=== PATIENT | male | born 1960 | race Caucasian/White ===

== ENCOUNTER 2019-08-22 15:48 | Emergency (ER) | payer OTHER, SELFPAY ==
[2019-08-22 15:53] VITALS: BP 142/89; PULSE 58; RESP 15; TEMP 36.8; O2SAT 98
--- NOTE | 2019-08-22 16:00 | DI.RAD_ITS ---
EXAM: XR ELBOW LT COMPLETE CLINICAL HISTORY: dog bite, 3 wounds. TECHNIQUE: 2D digital imaging was performed. COMPARISON: No exams were available for comparison FINDINGS: BONES: No acute fracture is present. No bony destructive lesion is seen. JOINTS: The elbow is normally aligned. No joint effusion is seen. SOFT TISSUE: Normal. IMPRESSION: Unremarkable radiographs of the left elbow. DATA REPOSITORY: RADIATION DOSE DELIVERED:
--- NOTE | 2019-08-22 16:16 | W.ED.GENAD ---
Discharge Plan Disposition Patient Disposition: HOME Condition: Stable Discharge Details Chief Complaint: AnimalBite Clinical Impression: Dog bite Primary Care Provider: Silas Peterson ED Provider: Lisandro Montgomery Home Meds and New Rx's Prescriptions: Continued atorvastatin 40 MG tablet 40 mg PO DAILY RF: 0 lisinopril 20 MG tablet 20 mg PO DAILY RF: 0 verapamil 240 MG tablet extended release 240 mg PO DAILY RF: 0 fluticasone propionate 16 GM spray,suspension 50 mcg NS DAILY RF: 0 Multivitamin/Iron/Folic Acid [Centrum Adults Tablet] 1 EACH tablet 1 ea PO DAILY RF: 0 ibuprofen 200 MG capsule 200 mg PO Q6H PRN RF: 0 albuterol sulfate [ProAir HFA] 8.5 GM HFA aerosol inhaler 2 puff Inhalation Q4H PRN RF: 0 Discharge Instructions Instructions: Animal Bite (ED) Additional Instructions: Keep the area clean and dry. You may change antibiotic dressing daily. Please watch for new or worsening symptoms and return to the ER for any concerns. [id number] Tylenol and/or Motrin as directed for discomfort. I do recommend reaching out your primary care provider and having the wound reevaluated in the next 3-5 days. Medical Decision Making Patient presents for left elbow dog bite. Patient appears well, nontoxic. Neuro, vascular, tendon intact. Dog was up-to-date on shots and immunizations, patient reports that his tetanus is up-to-date. There is no laceration to repair. Will clean and irrigate the wound thoroughly and obtain x-ray to rule out bony abnormality or foreign body. The dog bite form was completed. Wound cleaned and dressed. Patient tolerated well. X-ray unremarkable. Patient with no additional questions or concerns. Imaging Data Radiologic Study: Attestation: I personally reviewed and interpreted this imaging study as follows: Imaging: X-Ray Radiologist's impression: Left elbow read by virtual radiology as negative HPI General Mode of arrival: ambulatory. Date/Time Provider Initiated Documentation: 08/22/19 15:57. Limitations to Documentation: no limitations. Information obtained by: patient. HPI Narrative: 58-year-old gentleman with a history of hypertension, [id number], presents status post dog bite that occurred around 1045 this morning while at work. 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 He reports mild discomfort. Denies numbness, tingling, weakness. Apparently the dog is up-to-date on its shots immunizations, patient reports that his tetanus is up-to-date. He denies any other injury. Patient states that his work required him to come for evaluation. The animal bite form is in the process of being completed. Apparently the dog is a rescue dog and has some behavioral issues. Related Data Home Medications Medication Instructions Recorded Confirmed Multivitamin/Iron/Folic Acid 1 ea PO DAILY 10/11/17 08/22/19 [Centrum Adults Tablet] albuterol sulfate [ProAir HFA] 2 puff INHALATION Q4H PRN inhaler 10/11/17 08/22/19 atorvastatin 40 mg PO DAILY tab 10/11/17 08/22/19 fluticasone propionate 50 mcg NS DAILY spray 10/11/17 08/22/19 ibuprofen 200 mg PO Q6H PRN tab 10/11/17 08/22/19 lisinopril 20 mg PO DAILY tab 10/11/17 08/22/19 verapamil 240 mg PO DAILY tab-cap 10/11/17 08/22/19 Allergies Allergy/AdvReac Type Severity Reaction Status Date / Time No Known Drug Allergies Allergy Unverified 10/11/17 14:56 General Stated Complaint: AnimalBite SHAHEEN: 4 Review of Systems Constitutional Constitutional: Denies fever(s) and Denies weakness Gastrointestinal Gastrointestinal: Denies nausea Musculoskeletal Musculoskeletal: Denies numbness and Denies tingling Integumentary/Breasts Skin/Breast: Denies rash Neurologic Neurologic: Denies numbness, Denies tingling and Denies weakness [facility] Medical History Allergic rhinitis Anxiety disorder Colon cancer Depression Dysthymic disorder Fatigue HTN (hypertension) Hyperlipidemia, unspecified Mild intermittent asthma SHANA (obstructive sleep apnea) Pain in thoracic spine Personal history of colonic polyps Post concussive syndrome PVC (premature ventricular contraction) Radiculopathy, lumbar region Sleep apnea Ventricular premature depolarization Social History Smoking/Tobacco Use Status: Former Tobacco Use Alcohol Intake: current Alcohol Intake frequency: a few times a week Drug use: Never Substance use type: does not use Do you feel safe at home: Yes Do you feel safe in your relationship?: Yes Exam Const General: cooperative, healthy appearing, comfortable and no acute distress Orientation: alert and awake [facility] Head: normal to inspection, normocephalic and atraumatic Mouth: moist mucous membranes Eyes Conjunctivae: conjunctivae normal Neck Neck: normal visual inspection, trachea midline and supple Resp Effort & Inspection: normal respiratory effort and able to speak in complete sentences Cardio Rate: regular rate Rhythm: regular rhythm Skin General skin exam: no rashes or lesions noted Neuro General: patient alert, patient awake, patient oriented x3, moves all extremities and no focal motor deficits Motor: muscle tone normal throughout and strength 5/5 throughout Sensory Exam: no sensory deficits noted Extrem Left upper extremity: full ROM and elbow/forearm Details: abnormal to inspection, tenderness, normal ROM, abrasion (Distal posterior elbow), laceration (2 puncture wounds, posterior left elbow. No bleeding or obvious foreign body) and distal pulses intact; no unusual warmth, no ecchymosis, no foreign bodies and no deformity Psych Appearance: grossly normal Mental Status: mental status grossly normal Course Vital Signs Vital signs: Vital Signs Temperature 36.8 C 08/22/19 15:53 Pulse 58 L 08/22/19 15:53 Respiratory Rate 15 08/22/19 15:53 Blood Pressure 142/89 H 08/22/19 15:53 Pulse Oximetry 98 08/22/19 15:53 Temperature 36.8 C 08/22/19 15:53 Temperature Source Temporal Artery Scan 08/22/19 15:53 Pulse 58 L 08/22/19 15:53 Respiratory Rate 15 08/22/19 15:53 Respiratory Effort Non-Labored 08/22/19 15:57 Blood Pressure 142/89 H 08/22/19 15:53 Blood Pressure Position Sitting 08/22/19 15:53 Pulse Oximetry 98 08/22/19 15:53 Oxygen Delivery Method Room Air 08/22/19 15:53 Oxygen Flow Rate 0 08/22/19 15:53 Pain Level 1 08/22/19 15:53
--- NOTE | 2019-08-22 16:39 | DI.VRAD_ITS ---
PROCEDURE INFORMATION: Exam: XR Left Elbow Exam date and time: 08/22/2019 4:28 PM Age: 58 years old Clinical indication: Injury or trauma; Injury history: Dog bite; Work related; Follow-up exam; Elbow; Left TECHNIQUE: Imaging protocol: XR Left elbow. Views: 3 or more views. COMPARISON: No relevant prior studies available. FINDINGS: The bony structures are in anatomic alignment. No fracture is present. No radiopaque foreign body is identified. The joint spaces are well maintained. IMPRESSION: No evidence of acute bony abnormality. Dictated and Authenticated by: Nicholas Olivera MD. Ordering:DARNELL Mcmahon MD
--- NOTE | 2019-08-22 16:53 | NUR.NOTE ---
Nursing Note: Message left for Yomi Fernández, health officer for [place]. [facility] cell, work [phone]
--- NOTE | 2019-08-24 09:03 | NUR.NOTE ---
Nursing Note: Animals bite report sent to evin gavin his office per his request @ [phone]
== END 2019-08-22 16:53 | disposition home or self-care (01) ==
PROVIDERS: Emergency Provider Physician Assistant; PCP Family Medicine
DX: S51.052A Open bite, left elbow, initial encounter (principal); W54.0XXA Bitten by dog, initial encounter; I10 Essential (primary) hypertension
CPT/HCPCS: 99283; 73080